=== PATIENT | male | born 1970 | race Native Hawaiian/Other Pacific Islander ===

== ENCOUNTER 2017-01-29 19:43 | Emergency (ER) | payer SELFPAY ==
[2017-01-29] MEDS ORDERED: FUL-GLO OP ONE (22:23)
[2017-01-29] MEDS ORDERED: TETRACAINE 0.5% OU PRN (22:23)
--- NOTE | 2017-01-29 22:39 | Emergency Department Report ---
Eye Injury/Foreign Body - HPI Eye Location: Left Severity: Mild Tetanus Status: Up to Date Eye Symptoms: Eye Pain: No, Blurred Vision: No, Eye Redness: Yes, Grinding/ Hammering Metal: No, Used Eye Protection: No, Contact Lens Use: No, Recalls Injury: No, Photophobia: No ED Review of Systems ROS: Stated complaint: EYE PAIN Other details as noted in HPI Constitutional: denies: chills, fever, malaise Eyes: eye discharge, other (patient believes he may have left his contact lens in his eye). denies: eye pain, vision change ENT: as per HPI Respiratory: no symptoms reported Gastrointestinal: denies: nausea, vomiting Skin: as per HPI. denies: rash, lesions Neurological: denies: headache, weakness, paresthesias, confusion, vertigo ED Past Medical Hx - Past Medical History Hx Diabetes: Yes - Surgical History Additional Surgical History: retinal detached - Social History Smoking Status: Never Smoker Substance Use Type: None - Medications Home Medications: Home Medications Medication Instructions Recorded Confirmed Last Taken Type Gentamicin 0.3% Ophth Soln 2 drops OP Q4H #1 bottle 01/29/17 Unknown Rx Eye Injury Exam - Exam General: Vital signs noted. No distress. Alert and acting appropriately. Patient's left eye has conjunctival injection, purulent discharge noted. Pupils are equal and reactive to light and accommodation, extraocular movements are intact, no janeen-orbital adenopathy noted. Patient is not photophobic. Patient has no globe tenderness. Fluorescein exam shows no foreign body shows no recent trauma eye. He should advise to see his guest history clerk tomorrow and if he cannot get in to see his guest history clerk tomorrow to come in for recheck in the ER. Patient is awake alert and oriented. Patient's neck is supple with no adenopathy. Patient's bilateral breath sounds are clear to auscultation and in no respiratory distress. Patient's skin is free from rashes or lesions. Patient vital signs within normal limits. ED Course Vital Signs 01/29/17 01/29/17 20:10 20:15 Temperature 98.4 F 98.4 F Pulse Rate 76 76 Respiratory 18 18 Rate Blood Pressure 162/97 Blood Pressure 162/97 [Right] O2 Sat by Pulse 99 99 Oximetry Critical care attestation.: If time is entered above; I have spent that time in minutes in the direct care of this critically ill patient, excluding procedure time. ED Disposition Clinical Impression: Conjunctivitis Disposition: DISCHARGED TO HOME OR SELFCARE Is pt being admited?: No Condition: Stable Instructions: Conjunctivitis (ED) Additional Instructions: Go to your guest history clerk office first thing tomorrow morning for recheck. If he cannot get into your guest history clerk come to the ER for recheck. Prescriptions: Gentamicin 0.3% Ophth Soln 2 drops OP Q4H #1 bottle Forms: Work/School Release Form(ED)
[2017-01-29 23:20] VITALS: BP 128/78
== END 2017-01-29 23:21 | disposition home or self-care (01) ==
LOC: ED 19:43
DX: H10.9 Unspecified conjunctivitis (principal); E11.9 Type 2 diabetes mellitus without complications
CPT/HCPCS: 99283